=== PATIENT | male | born 1935 | race Asian ===

== ENCOUNTER 2019-08-31 11:15 | Emergency (ER) | payer OTHER ==
[~2019-08-31] VITALS: Ht 177.8 cm; Wt 72.6 kg
[~2019-08-31 11:15] MED LIST: ATOR40TA68 PO; BENA20TA9 PO; BISA-79 PO; CARB-61 PO; CARV12.548 PO; ELMIRON; FURO20TA4 PO; LINA5TAB2 PO; LORA10TA7 PO; METF-379 PO; OMEP20CA11 PO
[2019-08-31 11:24] VITALS: BP_SYST 134
--- NOTE | 2019-08-31 11:30 | NUR ---
Patient triaged and placed in waiting room. VSS and patient appears in no acute distress at this time. Accompanied by son, awaiting available bed, and MD notified of need for MSE.
--- NOTE | 2019-08-31 12:00 | NUR ---
pt arrives from home w/ c/o left shoulder pain. S/p fall. No other c/o at the moment.
--- NOTE | 2019-08-31 12:05 | NUR ---
SURESH Paul at bedside examining patient.
--- NOTE | 2019-08-31 12:10 | NUR ---
pt getting x-rays at the bedside
[2019-08-31] MEDS ORDERED: KETOROLAC TROMETHAMINE 30 MG VIAL IM ONE (12:30)
--- NOTE | 2019-08-31 12:45 | NUR ---
medicted the pt w/ Toradol IM
[2019-08-31 13:05] VITALS: BP_SYST 134
--- NOTE | 2019-08-31 13:06 | NUR ---
Patient given written and verbal discharge instructions and verbalizes understanding. ER MD discussed with patient the results and treatment provided. Patient in stable condition. ID arm band removed. Rx of Naproxen given. Patient educated on pain management and to follow up with PMD. Pain Scale 3/10. Opportunity for questions provided and answered. Medication side effect fact sheet provided.
== END 2019-08-31 13:06 | disposition home or self-care (01) ==
LOC: SED 11:15
DX: S42.032A Displaced fracture of lateral end of left clavicle, initial encounter for closed fracture (principal); E11.9 Type 2 diabetes mellitus without complications; I25.2 Old myocardial infarction; Z79.899 Other long term (current) drug therapy; W01.0XXA Fall on same level from slipping, tripping and stumbling without subsequent striking against object, initial encounter; Y93.89 Activity, other specified; Y92.89 Other specified places as the place of occurrence of the external cause; Y99.8 Other external cause status
CPT/HCPCS: 29105; 73000; 73030; 96372; 99284; J1885

== ENCOUNTER 2022-02-22 18:19 | Inpatient (IN) | payer OTHER ==
[~2022-02-22] VITALS: Ht 175.3 cm; Wt 76.8 kg
[~2022-02-22 18:19] MED LIST changes: +BENA-6 PO; -BENA20TA9 PO; -OMEP20CA11 PO; +OMEP20CA15 PO
[2022-02-22 18:27] VITALS: BP_SYST 123
--- NOTE | 2022-02-22 18:37 | NUR ---
PT BIBA AWAKE AND ALERT AOX3, WITH SOB . PT FAMILY CALLED 911. PT WAS TACPENIC AT 32 W/ LABORED BREATHING AND CRACKLES, AND O2 WAS 85% ON RA. PT HAS HX OF CHF AND HTN, DM2.
--- NOTE | 2022-02-22 18:40 | NUR ---
MD DR NAJERA AT BEDSIDE
[2022-02-22 19:03] LABS: BASOPHILS # (AUTO) 0.1 K/uL (0.0-0.2); BASOPHILS % (AUTO) 0.6 % (0.0-2.0); EOSINOPHILS # (AUTO) 0.8 K/uL (0.0-0.4); EOSINOPHILS % (AUTO) 3.5 % (0.0-4.0); HEMATOCRIT 28.6 % (36-54); HEMOGLOBIN 9.1 g/dL (14.0-18.0); LYMPHOCYTES # (AUTO) 5.2 K/uL (1.0-5.5); LYMPHOCYTES % (AUTO) 24.3 % (20.5-51.5); MEAN CORPUSCULAR HEMOGLOBIN 29 pg (27-31); MEAN CORPUSCULAR HGB CONC 32 % (32-36); MEAN CORPUSCULAR VOLUME 91 fL (79.0-98.0); MONOCYTES # (AUTO) 1.1 K/uL (0.0-1.0); MONOCYTES % (AUTO) 5.3 % (1.7-9.3); NEUTROPHILS # (AUTO) 14.2 K/uL (1.8-7.7); NEUTROPHILS % (AUTO) 66.3 % (40.0-70.0); PLATELET COUNT (AUTO) 481 K/uL (130-430); RED BLOOD CELL COUNT(AUTO) 3.16 MIL/uL (4.2-6.2); RED CELL DISTRIBUTION WIDTH 18.5 % (9.0-15.0); WHITE BLOOD COUNT (AUTO) 21.4 K/uL (4.8-10.8)
--- NOTE | 2022-02-22 19:24 | NUR ---
REPORT GIVEN TO JAMAR VALENTINO. PT IN STABLE CONDITION. VSS
[2022-02-22 19:25] LABS: ANION GAP 12 (5-15); CHLORIDE 106 mmol/L (98-107); CREATININE 1.54 mg/dL (0.55-1.30); GLUCOSE 226 mg/dL (70-99); UREA NITROGEN, BLOOD 25 mg/dL (8-21)
[2022-02-22] MEDS ORDERED: PIPERACILLIN/TAZO 3.375 GM in NS 50 ML IV ONE (19:30)
[2022-02-22 19:34] LABS: ALANINE AMINOTRANSFERASE 19 U/L (12-78); ALBUMIN 2.8 g/dL (3.4-4.8); ASPARTATE AMINOTRANSFERASE 23 U/L (10-37); TOTAL BILIRUBIN 0.7 mg/dL (0.0-1.0)
[2022-02-22] MEDS ORDERED: PIPERACILLIN/TAZOBACTAM 3.375 GM/VIAL (ZOSYN) IV ONE (19:52)
[2022-02-22 20:00] LABS: INR 0.9 (0.80-1.20); PROTHROMBIN TIME 9.8 SECS (9.5-12.5)
[2022-02-22 20:21] LABS: BILIRUBIN,URINE NEGATIVE (NEGATIVE); BLOOD, URINE 1+ (NEGATIVE); CLARITY/URINE SL CLOUDY (CLEAR); COLOR,URINE YELLOW (YELLOW); GLUCOSE,URINE NEGATIVE (NEGATIVE); KETONES,URINE TRACE (NEGATIVE); LEUKOCYTE ESTERASE ,URINE 1+ (NEGATIVE); NITRITE, URINE NEGATIVE (NEGATIVE); PROTEIN URINE 1+ (NEGATIVE); UROBILINOGEN,URINE 0.2 (0.2-1.0)
[2022-02-22 20:39] LABS: BACTERIA,URINE MODERATE /HPF (None Seen); MUCUS,URINE None Seen /LPF (None Seen); RBC,URINE 0-3 /HPF (0-3); WBC,URINE 20-50 /HPF (0-3)
[2022-02-22] MEDS ORDERED: FUROSEMIDE 20 MG/2 ML VIAL IVP ONE (20:45)
--- NOTE | 2022-02-22 21:00 | NUR ---
# 20 gauge angiocath placed to L FA. Use of asceptic technique. Opsite placed over site. Blood return noted. Flushed with 10 cc of normal saline. No evidence of infiltration noted. Patient tolerated well.
--- NOTE | 2022-02-22 21:50 | NUR ---
Admit bed requested Patient will be admitted to care of . Admitted to ICU unit. Diagnosis :SEPSIS Inpatient (Yes or No) Y Observation (Yes or No) N Orientation concerns or request close to nursing station (Yes or No) N Covid Status : NEG From Home (Yes or if No enter name of facility) Y Addendum: 02/23/22 at 0723 by [email or web address] PT TO TELE PER DR. LY AT [id number]
[2022-02-22] MEDS ORDERED: DOCUSATE SODIUM 100 MG CAPSULE PO PRN (22:15)
[2022-02-22] MEDS ORDERED: ACETAMINOPHEN 325 MG TABLET PO PRN (22:15)
[2022-02-22] MEDS ORDERED: ONDANSETRON HCL 4 MG/2 ML VIAL IVP PRN (22:15)
[2022-02-22] MEDS ORDERED: ZOLPIDEM TARTRATE 5 MG TABLET PO PRN (22:15)
[2022-02-22] MEDS ORDERED: MORPHINE 2 MG/ML INJ. SYRINGE IVP PRN ×2 (22:15)
[2022-02-22] MEDS ORDERED: MAGNESIUM SULFATE 50 ML IV PRN (22:15)
[2022-02-22] MEDS ORDERED: LORazepam 2 MG/ML VIAL IVP PRN (22:15)
[2022-02-22] MEDS ORDERED: DEXTROSE 50% JECT 50 ML DISP.SYRIN IVP PRN (22:15)
[2022-02-22] MEDS ORDERED: MUPIROCIN 2% TOPICAL OINTMENT 22 GM NS PRN (22:15)
[2022-02-22] MEDS: NACL 0.9% 1,000 ML IV SCH (22:15)
[2022-02-22] MEDS ORDERED: VANCOMYCIN HCL 1 GM/NS PREMIX 250 ML IV SCH (23:15)
[2022-02-23] MEDS ORDERED: PIPERACILLIN/TAZO 3.375/DEX-IS 50 ML IV SCH
[2022-02-23] MEDS ORDERED: PIPERACILLIN/TAZOBACTAM 3.375 GM/VIAL (ZOSYN) IV ONE (00:06)
[2022-02-23] MEDS ORDERED: VANCOMYCIN HCL 1000 MG/VIAL IV ONE (00:07)
[2022-02-23 01:42] VITALS: BP_SYST 99
[2022-02-23 06:22] LABS: BASOPHILS # (AUTO) 0.1 K/uL (0.0-0.2); BASOPHILS % (AUTO) 0.5 % (0.0-2.0); EOSINOPHILS # (AUTO) 0.2 K/uL (0.0-0.4); EOSINOPHILS % (AUTO) 1.4 % (0.0-4.0); HEMATOCRIT 23.9 % (36-54); HEMOGLOBIN 7.9 g/dL (14.0-18.0); LYMPHOCYTES # (AUTO) 2.2 K/uL (1.0-5.5); LYMPHOCYTES % (AUTO) 14.7 % (20.5-51.5); MEAN CORPUSCULAR HEMOGLOBIN 29 pg (27-31); MEAN CORPUSCULAR HGB CONC 33 % (32-36); MEAN CORPUSCULAR VOLUME 88 fL (79.0-98.0); MONOCYTES # (AUTO) 0.9 K/uL (0.0-1.0); MONOCYTES % (AUTO) 5.9 % (1.7-9.3); NEUTROPHILS # (AUTO) 11.5 K/uL (1.8-7.7); NEUTROPHILS % (AUTO) 77.5 % (40.0-70.0); PLATELET COUNT (AUTO) 388 K/uL (130-430); RED BLOOD CELL COUNT(AUTO) 2.71 MIL/uL (4.2-6.2); RED CELL DISTRIBUTION WIDTH 18.1 % (9.0-15.0); WHITE BLOOD COUNT (AUTO) 14.9 K/uL (4.8-10.8)
[2022-02-23 06:30] LABS: ANION GAP 12 (5-15); CALCIUM 8.4 mg/dL (8.4-11.0); CHLORIDE 109 mmol/L (98-107); CREATININE 1.26 mg/dL (0.55-1.30); GLUCOSE 121 mg/dL (70-99); UREA NITROGEN, BLOOD 23 mg/dL (8-21)
--- NOTE | 2022-02-23 07:00 | NUR ---
RECEIVED PT IN BED #8 FROM NOC RN, PT IS STABLE, NAD, VSS, AAOx3, AWAITING DISPOSITION TO THE FLOOR. AWAITING ADMITTING MD LY FOR ASSESSMENT.
--- NOTE | 2022-02-23 07:15 | NUR ---
MD LY AT BEDSIDE DISCUSSING DNR STATUS AND ADMISSION ASSESSMENT.
[2022-02-23] MEDS: NACL 0.9% 1,000 ML IV SCH (07:52)
[2022-02-23] MEDS: PIPERACILLIN/TAZO 3.375/DEX-IS 50 ML IV SCH ×4 (08:02→23:01)
[2022-02-23] MEDS: ATORVASTATIN 20 MG TABLET PO SCH (08:33)
[2022-02-23] MEDS: HEPARIN SODIUM,PORCINE 5,000 UNITS/ML VIAL SUBCUT SCH ×2 (08:34→23:04)
[2022-02-23] MEDS ORDERED: CARBIDOPA/LEVODOPA 25/100 MG TABLET PO SCH ×2 (09:00→10:58)
[2022-02-23] MEDS ORDERED: ACET-2634 PO (10:56)
[2022-02-23] MEDS ORDERED: ASPI-862 PO (10:56)
[2022-02-23] MEDS ORDERED: CHOL200075 PO (10:56)
--- NOTE | 2022-02-23 16:46 | NUR ---
Patient will be admitted to care of . Admitted to TELE unit. Will go to room 135TA. Belongings list completed. Complete and up to date summary report printed. SBAR report to be given at bedside with opportunity for questions.
--- NOTE | 2022-02-23 16:54 | NUR ---
CONSULTATION PAGED/CALLED Reason for Consultation: [] PNA Person Who was Notified: [] ELAINE Consulting Physician: [] DR BLAS Evaporator Operator Specialty: [] PULWALT Ordering Physician: [] DR LY
--- NOTE | 2022-02-23 16:57 | NUR ---
CONSULTATION PAGED/CALLED Reason for Consultation: [] CHF Person Who was Notified: [] DR HICKS Y Consulting Physician: [] DR Galdino HICKS Hospice Office Coordinator Specialty: [] CARDIO Ordering Physician: [] DR LY
--- NOTE | 2022-02-23 16:59 | NUR ---
CONSULTATION PAGED/CALLED Reason for Consultation: [] SEPSIS Person Who was Notified: [] GALEN Consulting Physician: [] DR VALERIE CHAUDHARI FOR DR DAI Refueler Specialty: [] ID Ordering Physician: [] DR LY
--- NOTE | 2022-02-23 17:03 | NUR ---
CONSULTATION PAGED/CALLED Reason for Consultation: [] RENAL INSUFFICIENCY Person Who was Notified: [] GALEN Consulting Physician: [] DR TIFFANY DAVIS Vocational Ed Instructor Specialty: [] NEPHRO Ordering Physician: [] DR LY
--- NOTE | 2022-02-23 17:10 | NUR ---
ADMISSION NOTES RECEIVED PT FROM [facility] C/O CHELSY [facility]AUGHLIN, PT IS DIAGNOSED WITH SEPSIS UNDER DR LY. BP LOW AT 90/58. NO FEVER. PT'S AT BEDSIDE. PT SPEAKS URDU AND SPANISH. EDUCATED PT'S ON THE USE OF CALL LIGHT, TV AND BED CONTROLS. ENCOURAGED TO CALL FOR ASSIST AND ANY OTHER CONCERNS.
[2022-02-23 18:00] VITALS: BP_SYST 87
[2022-02-23] MEDS ORDERED: POTASSIUM CHLORIDE 40 MEQ in NS 250 ML IV ONE (18:00)
--- NOTE | 2022-02-23 18:19 | NUR ---
BOLUS 1 LI OF NS STARTED ORDERED. Addendum: 02/23/22 at 1820 by Alonso Carnes RN LAST BP WAS 86/55
[2022-02-23] MEDS ORDERED: NACL 0.9% 1,000 ML IV ONE (18:30)
[2022-02-23] MEDS: KCL 20 mEq in 100 mL (PREMIX) 100 ML IV SCH ×2 (18:38→22:45)
[2022-02-23 19:00] VITALS: BP_SYST 125; BP_SYST 141
--- NOTE | 2022-02-23 19:29 | NUR ---
ENDORSED TO [facility] NURSE RE ADMISSION: DUE TO PT'S STATUS, THIS RN WAS NOT ABLE TO ADMIT PT THIS RN HAS TO CALL MD AND CARRY OUT ORDERS.
[2022-02-23 19:32] VITALS: BP_SYST 91
[2022-02-23 20:00] VITALS: BP_SYST 125
[2022-02-23] MEDS ORDERED: FLU VACC QS2022-23(6MOS UP)/PF 0.5 ML/SYR SYRINGE I.M. ONE (22:15)
[2022-02-23] MEDS: CARBIDOPA/LEVODOPA 25/100 MG TABLET PO SCH (22:50)
[2022-02-23] MEDS: VANCOMYCIN HCL 1,000 MG in NS 250 ML IV SCH (22:58)
[2022-02-24] VITALS (7 sets, daily range): BP systolic 101–148
[2022-02-24] MEDS: NACL 0.9% 1,000 ML IV SCH (05:22)
[2022-02-24] MEDS: PIPERACILLIN/TAZO 3.375/DEX-IS 50 ML IV SCH ×3 (05:23→17:09)
--- NOTE | 2022-02-24 08:00 | NUR ---
Initial Notes Patient is AOx3. Resting and awake. No ss of distress noted. Breathing is even and nonlabored, on 2 L O2 via NC. No SOB noted. Patient denies pain. IV patent. Vital signs obtained, as documented. Patient is high Fowlers, breakfast at bedside table. Bed is locked, alarm on, and at lowest position. Call light within reach.
--- NOTE | 2022-02-24 10:00 | NUR ---
Notes Patient has been cleaned and repositioned. Wound care done. Patient tolerated well. denies pain. No ss of distress noted. Patient is comfortable and resting. IVF running. Family at bedside. Safety precautions in place and call light within reach.
[2022-02-24] MEDS: CARBIDOPA/LEVODOPA 25/100 MG TABLET PO SCH ×2 (10:10→21:54)
[2022-02-24] MEDS: ATORVASTATIN 20 MG TABLET PO SCH (10:10)
[2022-02-24] MEDS: HEPARIN SODIUM,PORCINE 5,000 UNITS/ML VIAL SUBCUT SCH ×2 (10:13→22:09)
[2022-02-24] MEDS ORDERED: ACETYLCYSTEINE 20% 6000 MG/30 ML VIAL (ORAL) PO SCH (10:30)
[2022-02-24] MEDS ORDERED: ACETYLCYSTEINE 20% 6000 MG/30 ML VIAL (ORAL) PO ONE (10:30)
--- NOTE | 2022-02-24 11:01 | NUR ---
Dietitian Recommendations * Continue Consistent CHO diet * Rec Glucerna BID * Consider wound supplements: MVI, 250 mg VIT C, Cortez BID * Consider 220mg ZnSO4 x 14 days for wound healing GS, MPH, RD Please refer to RD Assessment for further details Addendum: 02/24/22 at [address] Amended: Links added.
--- NOTE | 2022-02-24 12:00 | NUR ---
Notes No ss of distress noted. Patient is eating lunch. Patient stable. Safety precautions in place and call light within reach.
[2022-02-24] MEDS: INSULIN LISPRO SLIDING SCALE 100 UNITS/ML, 3 ML VIAL (humaLOG) SUBCUT PRN ×2 (12:12→17:35)
[2022-02-24 14:50] LABS: ANION GAP 10 (5-15); CALCIUM 8.1 mg/dL (8.4-11.0); CHLORIDE 108 mmol/L (98-107); GLUCOSE 139 mg/dL (70-99)
[2022-02-24 14:51] LABS: CREATININE 1.34 mg/dL (0.55-1.30); UREA NITROGEN, BLOOD 22 mg/dL (8-21)
[2022-02-24 15:11] LABS: ALANINE AMINOTRANSFERASE 10 U/L (12-78); ALBUMIN 2.3 g/dL (3.4-4.8); ASPARTATE AMINOTRANSFERASE 40 U/L (10-37); TOTAL BILIRUBIN 0.6 mg/dL (0.0-1.0)
[2022-02-24] MEDS: IPRATROPIUM/ALBUTEROL SULFATE 3 ML AMPUL.NEB (DUONEB) INH PRN ×2 (15:43→22:19)
[2022-02-24] MEDS: ACETYLCYSTEINE 20% 4 ML VIAL (RT) INH PRN ×2 (15:45→22:26)
--- NOTE | 2022-02-24 16:05 | NUR ---
MD Called and spoke to Dr. Galdino Cisse. made aware of critical troponin lab value of 245. New orders received.
--- NOTE | 2022-02-24 16:12 | NUR ---
Notes Patient is resting, eyes closed, appears to be sleeping. No facial grimace noted. at bedside. Bed locked, alarm on, and at lowest position. Call light within reach.
[2022-02-24 16:45] LABS: BASOPHILS # (AUTO) 0.1 K/uL (0.0-0.2); BASOPHILS % (AUTO) 0.6 % (0.0-2.0); EOSINOPHILS # (AUTO) 0.6 K/uL (0.0-0.4); EOSINOPHILS % (AUTO) 5.3 % (0.0-4.0); LYMPHOCYTES # (AUTO) 1.9 K/uL (1.0-5.5); LYMPHOCYTES % (AUTO) 18.4 % (20.5-51.5); MEAN CORPUSCULAR HEMOGLOBIN 29 pg (27-31); MEAN CORPUSCULAR HGB CONC 34 % (32-36); MEAN CORPUSCULAR VOLUME 88 fL (79.0-98.0); MONOCYTES # (AUTO) 0.6 K/uL (0.0-1.0); MONOCYTES % (AUTO) 5.8 % (1.7-9.3); NEUTROPHILS # (AUTO) 7.4 K/uL (1.8-7.7); NEUTROPHILS % (AUTO) 69.9 % (40.0-70.0); PLATELET COUNT (AUTO) 393 K/uL (130-430); RED BLOOD CELL COUNT(AUTO) 2.74 MIL/uL (4.2-6.2); RED CELL DISTRIBUTION WIDTH 18.2 % (9.0-15.0); WHITE BLOOD COUNT (AUTO) 10.6 K/uL (4.8-10.8)
[2022-02-24] MEDS: POTASSIUM CHLORIDE 20 MEQ TAB.PRT.SR PO PRN (17:32)
--- NOTE | 2022-02-24 18:59 | NUR ---
Closing Notes Patient is awake and eating dinner. Family at bedside. Denies pain. No SOB noted. Breathing is even and nonlabored, on 2 L O2 via NC. IVF running. IV patent. No ss of distress noted. Patient is stable. All needs met. Bed is locked, alarm on, and at lowest position. Call light within reach.
[2022-02-24] MEDS: VANCOMYCIN HCL 1,000 MG in NS 250 ML IV SCH (22:05)
[2022-02-25] MEDS: NACL 0.9% 1,000 ML IV SCH (00:40)
[2022-02-25] MEDS: PIPERACILLIN/TAZO 3.375/DEX-IS 50 ML IV SCH ×4 (01:18→17:09)
[2022-02-25 02:06] VITALS: BP_SYST 142
--- NOTE | 2022-02-25 04:00 | NUR ---
pt.assessed.v/s assessed values wnl.o2-sat%=96%.iv access intact.pt.assessed for cleanless.lne.ie pteioned.no cpopainainaszuea.pt.rst dnr stsus.reriew family.pt.has janae capone wifhto be elham puente md.i am.pt.assesefoc c/ne.is pt tioend.calight/telephp apce winaces of thpt.
[2022-02-25 07:00] LABS: BASOPHILS # (AUTO) 0.1 K/uL (0.0-0.2); BASOPHILS % (AUTO) 0.5 % (0.0-2.0); EOSINOPHILS # (AUTO) 0.1 K/uL (0.0-0.4); EOSINOPHILS % (AUTO) 0.5 % (0.0-4.0); HEMATOCRIT 23.8 % (36-54); HEMOGLOBIN 7.7 g/dL (14.0-18.0); LYMPHOCYTES # (AUTO) 1.2 K/uL (1.0-5.5); LYMPHOCYTES % (AUTO) 9.1 % (20.5-51.5); MEAN CORPUSCULAR HEMOGLOBIN 29 pg (27-31); MEAN CORPUSCULAR HGB CONC 33 % (32-36); MEAN CORPUSCULAR VOLUME 89 fL (79.0-98.0); MONOCYTES # (AUTO) 0.6 K/uL (0.0-1.0); MONOCYTES % (AUTO) 4.5 % (1.7-9.3); NEUTROPHILS # (AUTO) 10.9 K/uL (1.8-7.7); NEUTROPHILS % (AUTO) 85.4 % (40.0-70.0); PLATELET COUNT (AUTO) 378 K/uL (130-430); RED BLOOD CELL COUNT(AUTO) 2.68 MIL/uL (4.2-6.2); WHITE BLOOD COUNT (AUTO) 12.8 K/uL (4.8-10.8)
--- NOTE | 2022-02-25 07:20 | NUR ---
opening note received sbar from night RN. Patient in bed, respirations even,non labored, bed in low and locked position, call light within reach, bed alarm on
[2022-02-25 07:25] LABS: ANION GAP 11 (5-15); CALCIUM 8.1 mg/dL (8.4-11.0); CHLORIDE 112 mmol/L (98-107); CREATININE 1.43 mg/dL (0.55-1.30); GLUCOSE 138 mg/dL (70-99); UREA NITROGEN, BLOOD 22 mg/dL (8-21)
[2022-02-25 08:00] VITALS: BP_SYST 88
[2022-02-25] MEDS: ATORVASTATIN 20 MG TABLET PO SCH (08:39)
[2022-02-25] MEDS: CARBIDOPA/LEVODOPA 25/100 MG TABLET PO SCH ×2 (08:39→21:11)
[2022-02-25] MEDS: HEPARIN SODIUM,PORCINE 5,000 UNITS/ML VIAL SUBCUT SCH ×2 (08:41→21:10)
--- NOTE | 2022-02-25 11:44 | NUR ---
DNR LEFT MESSAGE FOR DR LY THAT DNR PAPERWORK IS IN THE CHART AND NEEDS TO BE SIGNED TO BE IN EFFECT.
[2022-02-25 12:00] VITALS: BP_SYST 130
--- NOTE | 2022-02-25 12:20 | NUR ---
critical paged dr pratibha calhoun regarding critical troponin 228
--- NOTE | 2022-02-25 12:34 | NUR ---
critical informed dr Cisse of Critical Troponin no new orders
[2022-02-25] MEDS: ACETYLCYSTEINE 20% 4 ML VIAL (RT) INH PRN (15:15)
[2022-02-25] MEDS: IPRATROPIUM/ALBUTEROL SULFATE 3 ML AMPUL.NEB (DUONEB) INH PRN (15:15)
--- NOTE | 2022-02-25 15:57 | NUR ---
INFORMED DR BLAS THAT PATIENT IS COMPLAINING OF PHLEGM, HIGH COARSE RALES TO SEE PATIENT
[2022-02-25 16:00] VITALS: BP_SYST 129
--- NOTE | 2022-02-25 16:07 | NUR ---
MD DR BLAS BEDSIDE EXAMINING PATIENT NEW ORDERS RECEIVED
[2022-02-25] MEDS ORDERED: FUROSEMIDE 40 MG/4 ML VIAL IVP ONE (16:30)
--- NOTE | 2022-02-25 16:33 | NUR ---
BM LARGE BM, PROVIDED MELVIN CARE, CHANGED LINENS, REPOSITIONED PATIENT
[2022-02-25] MEDS: INSULIN LISPRO SLIDING SCALE 100 UNITS/ML, 3 ML VIAL (humaLOG) SUBCUT PRN (17:11)
[2022-02-25 19:00] VITALS: BP_SYST 147
--- NOTE | 2022-02-25 19:15 | NUR ---
change of shift.pt.presents quiescent affect;calm,resting.no c/o pain.nausea.diet status ordered npo;diet status reviewed w family. pt.assessed for cleanliness.pt.cleaned.pt.repositioned.pt.presents iv access location lt. forearm.iv access pt.presents respiratory status unlabored@room air.o2-sat%=96%.call light/telephone w/in access of the pt.
--- NOTE | 2022-02-25 19:20 | NUR ---
CLOSING NOTE PROVIDED SBAR TO NIGHT RN. PATIENT IN BED, RESPIRATIONS SHALLOW AND LABORED, 2L 02 NASAL CANULA. IV IS SALINE LOCKED. BED IS IN LOW AND LOCKED POSITION, CALL LIGHT WITHIN REACH, BED ALARM ON.. ENDORSED CARE TO NIGHT RN
[2022-02-25 20:00] VITALS: BP_SYST 147
--- NOTE | 2022-02-25 20:00 | NUR ---
pt.assessed.v/s assessed values wnl.o2-sat%=96%.pt.presents dnr code status @this hour.pt.retracts the dnr code status. pt.whises full code status.to f/u w in am.no c/o pain,nausea.iv access intact.pt.assessed for cleanliness.pt.repositioned. diet status ordered npo;diet status reviewed w family.call light/telephone placed w/in access of the pt.
--- NOTE | 2022-02-25 20:30 | NUR ---
blood glucose assessed value;141mg/dl.
--- NOTE | 2022-02-25 21:00 | NUR ---
2100p medication administered.pt.capable to ingest the po medication w/out difficulty.no c/o pain,nausea. call light telephone placed w/in access of the pt.
--- NOTE | 2022-02-25 22:00 | NUR ---
pt.assessed.pt.quiescent;calm. paged.returned page. apprised that pt.presented adverse reaction to inh duo-neb if an alternative inh medication could be ordered. ordered xopenox:1.25mg tid and q4hrs/prn;sob,wheezes.family apprised of the new inh medication order.pt.presents no c/o pain,nausea.pt.assessed for cleanliness.pt.repositioned.call light/ telephone placed w/in access of the pt.
[2022-02-25] MEDS: LevALBUTEROL HCL 1.25 MG/0.5 ML *CONC.* VIAL.NEB (XOPENEX CONC.) INH SCH (23:48)
--- NOTE | 2022-02-26 | NUR ---
pt.assessed.v/s assessed values wnl.o2-sat%=96%.no c.o pain,nausea.pt.assessed for cleanliness.pt.repositioned. call light/telephone placed w/in access of the pt.
[2022-02-26] MEDS: PIPERACILLIN/TAZO 3.375/DEX-IS 50 ML IV SCH ×5 (00:27→23:40)
--- NOTE | 2022-02-26 02:00 | NUR ---
pt.assessed.pt.quiescent.o2-sat%=96%.per flacc pain mgx pt.absent facial grimaces/body posturing.call light/telephone placed w/in access of the pt.
[2022-02-26 02:40] VITALS: BP_SYST 77
--- NOTE | 2022-02-26 04:00 | NUR ---
pt.assessed.pt.quiescent.o2-sat%=96%.per flacc pain mgx pt.absent facial grimaces/body posturing.pt.assessed for cleanliness. pt.repositioned.call light/telephone placed w/in access of the pt
--- NOTE | 2022-02-26 06:40 | NUR ---
pt.assessed.no c/o pain,nausea.zosyn abx 0600a dose administered.blood glucose assessed value:120mg /dl. pt.repositioned.call light/telephone placed w/in access of the pt.
[2022-02-26] MEDS: LevALBUTEROL HCL 1.25 MG/0.5 ML *CONC.* VIAL.NEB (XOPENEX CONC.) INH SCH ×3 (07:43→23:15)
[2022-02-26] MEDS: CARBIDOPA/LEVODOPA 25/100 MG TABLET PO SCH ×2 (08:38→21:38)
[2022-02-26] MEDS: ATORVASTATIN 20 MG TABLET PO SCH (08:38)
[2022-02-26] MEDS: HEPARIN SODIUM,PORCINE 5,000 UNITS/ML VIAL SUBCUT SCH ×2 (08:40→21:42)
[2022-02-26 08:49] LABS: BASOPHILS # (AUTO) 0.1 K/uL (0.0-0.2); BASOPHILS % (AUTO) 0.6 % (0.0-2.0); EOSINOPHILS # (AUTO) 0.5 K/uL (0.0-0.4); EOSINOPHILS % (AUTO) 3.9 % (0.0-4.0); HEMATOCRIT 25.9 % (36-54); HEMOGLOBIN 8.4 g/dL (14.0-18.0); LYMPHOCYTES % (AUTO) 15.9 % (20.5-51.5); MEAN CORPUSCULAR HEMOGLOBIN 29 pg (27-31); MEAN CORPUSCULAR HGB CONC 32 % (32-36); MEAN CORPUSCULAR VOLUME 89 fL (79.0-98.0); MONOCYTES # (AUTO) 0.8 K/uL (0.0-1.0); MONOCYTES % (AUTO) 6.4 % (1.7-9.3); NEUTROPHILS # (AUTO) 9.3 K/uL (1.8-7.7); NEUTROPHILS % (AUTO) 73.2 % (40.0-70.0); PLATELET COUNT (AUTO) 397 K/uL (130-430); RED BLOOD CELL COUNT(AUTO) 2.91 MIL/uL (4.2-6.2); RED CELL DISTRIBUTION WIDTH 18.2 % (9.0-15.0); WHITE BLOOD COUNT (AUTO) 12.7 K/uL (4.8-10.8)
[2022-02-26 09:02] LABS: ANION GAP 12 (5-15); CALCIUM 8.5 mg/dL (8.4-11.0); CHLORIDE 109 mmol/L (98-107); CREATININE 1.45 mg/dL (0.55-1.30); GLUCOSE 121 mg/dL (70-99); UREA NITROGEN, BLOOD 22 mg/dL (8-21)
[2022-02-26 09:25] VITALS: BP_SYST 147
[2022-02-26 12:25] VITALS: BP_SYST 85
--- NOTE | 2022-02-26 16:43 | NUR ---
TROPONIN 101 TRENDING DOWN PAGED
[2022-02-26 17:47] VITALS: BP_SYST 99
--- NOTE | 2022-02-26 18:08 | NUR ---
DR LY AWARE OF TROPONIN TRENDING DOWN AND PT IS ASYMPTOMATIC NO DISTRESS NOTED
--- NOTE | 2022-02-26 19:25 | NUR ---
CALLED MD GABRIELLA CANCINO MESSAGE FOR A DIET ORDER PT NOT ASPIRATION RISK CARE ENDORSED TO PAULO TO FOLLOW UP
--- NOTE | 2022-02-26 19:34 | NUR ---
ENDORSED PATIENT TO [facility]NELL VALENTINO, INFORMED DR QUIROZ CALLED TO GET AN ORDER FOR SPEECH THERAPY AND DIET ORDER, DR QUIROZ STATES TO CONTACT DR BLAS IN THE AM TO CLARIFY THESE ORDERS REGARDING DIET AND SPEECH THERAPY, KEEP PATIENT NPO, CORNELL VALENTINO INFORMED
[2022-02-26 20:00] VITALS: BP_SYST 102
--- NOTE | 2022-02-26 20:00 | NUR ---
INITIAL NOTES: PT IS AWAKE , NOT IN ANY ACUTE DISTRESS ; VITALS ARE STABLE ; ON ROOM AIR , FAMILY AT BEDSIDE ; ASSESSMENT COMPLETED ; NOTICED DRESSING TO THE SACRUM AND RIGHT HEEL , WILL OPEN IT LATER AND CHECK , PT TURNED AND REPOSITIONED ; BED IN LOW AND LOCK POSITION , WILL CONTINUE TO MONITOR PT . PT IS STILL NPO . WILL MONITOR
[2022-02-26] MEDS: POTASSIUM CHLORIDE 20 MEQ TAB.PRT.SR PO PRN (21:38)
--- NOTE | 2022-02-26 21:40 | NUR ---
MEDICATION : DUE MEDS GIVEN WITH SIPS OF WATER , PT IS ABLE TO SWALLOW WELL ; NOTICED PTS K IS LOW PER ORDER K DUR GIVEN ; NO S/S OF ANY ASPIRATION NOTICED . WILL CONTINUE TO MONITOR PT . PTS FAMILY IS STILL AT BEDSIDE.
--- NOTE | 2022-02-27 00:05 | NUR ---
NEW IV: PT IS COMFORTABLE , NOTICED IV ON THE R AC ,PT IS KEEPING HIS ARM FLEXED AND ITS CONTINUOUSLY BEEPING , DCD IV CATH ,TIP IS INTACT , DRESSING APPLIED , NEW IV STARTED TO THE LEFT FA 22G, X1 ATTEMPT , GOOD BLOOD RETURN NOTICED , IV FLUID RECONNECTED TO IT .VITALS ARE STABLE . WILL CONTINUE TO MONITOR PT . Addendum: 02/28/22 at 0344 by Yaakov Ayon RN CORRECTION ;WRONG DATE
--- NOTE | 2022-02-27 01:00 | NUR ---
RN NOTES: PT IS SLEEPING ,NOT IN ANY ACUTE DISTRESS; VITALS ARE STABLE ; WILL CONTINUE TO MONITOR PT .
[2022-02-27 01:05] VITALS: BP_SYST 103
--- NOTE | 2022-02-27 03:40 | NUR ---
RN ROUNDS; PT REMOVED HIS GOWN AND TELEMONITOR ; REORIENTED PT . WILL MONITOR PT .
--- NOTE | 2022-02-27 05:40 | NUR ---
RN NOTES: PT IS INCONTINENT WITH URINE ; PT CLEANED ; DRESSING ON THE SACRUM CHANGED , PLEASE CHECK ASSESSMENT ARE FOR MORE INFORMATION .PT TURNED AND REPOSITIONED ; WHILE CLEANING PT , PT C/O SOB . PLACED PT ON O2 FOR FEW MIN ; PT WAS SAT 98% ; PLACED PT BACK ON ROOM AIR AFTER FEW MIN ; PT IS SAT 95% .
[2022-02-27 05:59] VITALS: BP_SYST 107
[2022-02-27 06:07] LABS: BASOPHILS # (AUTO) 0.1 K/uL (0.0-0.2); BASOPHILS % (AUTO) 0.5 % (0.0-2.0); EOSINOPHILS # (AUTO) 0.1 K/uL (0.0-0.4); EOSINOPHILS % (AUTO) 0.9 % (0.0-4.0); HEMATOCRIT 26.3 % (36-54); HEMOGLOBIN 8.6 g/dL (14.0-18.0); LYMPHOCYTES % (AUTO) 6.6 % (20.5-51.5); MEAN CORPUSCULAR HEMOGLOBIN 29 pg (27-31); MEAN CORPUSCULAR HGB CONC 33 % (32-36); MEAN CORPUSCULAR VOLUME 89 fL (79.0-98.0); MONOCYTES # (AUTO) 0.9 K/uL (0.0-1.0); MONOCYTES % (AUTO) 5.6 % (1.7-9.3); NEUTROPHILS # (AUTO) 13.1 K/uL (1.8-7.7); NEUTROPHILS % (AUTO) 86.4 % (40.0-70.0); PLATELET COUNT (AUTO) 433 K/uL (130-430); RED BLOOD CELL COUNT(AUTO) 2.97 MIL/uL (4.2-6.2); RED CELL DISTRIBUTION WIDTH 17.8 % (9.0-15.0); WHITE BLOOD COUNT (AUTO) 15.1 K/uL (4.8-10.8)
[2022-02-27] MEDS: PIPERACILLIN/TAZO 3.375/DEX-IS 50 ML IV SCH ×4 (06:14→23:57)
--- NOTE | 2022-02-27 06:58 | NUR ---
CLOSING NOTES: PT IS COMFORTABLE ; NOT IN ANY ACUTE DISTRESS; WILL CONTINUE TO MONITOR PT . PT ON ROOM AIR ;BED IN LOW AND LOCK POSITION ; ALL NEEDS ATTENDED ; WILL CONTINUE TO MONITOR AND WILL ENDORSE TO NEXT SHIFT NURSE .
[2022-02-27 07:17] LABS: ANION GAP 14 (5-15); CALCIUM 8.6 mg/dL (8.4-11.0); CHLORIDE 106 mmol/L (98-107); CREATININE 1.31 mg/dL (0.55-1.30); GLUCOSE 147 mg/dL (70-99); UREA NITROGEN, BLOOD 25 mg/dL (8-21)
[2022-02-27] MEDS: LevALBUTEROL HCL 1.25 MG/0.5 ML *CONC.* VIAL.NEB (XOPENEX CONC.) INH SCH ×3 (07:41→22:20)
[2022-02-27 08:00] VITALS: BP_SYST 151
[2022-02-27] MEDS: ATORVASTATIN 20 MG TABLET PO SCH (09:00)
[2022-02-27] MEDS: CARBIDOPA/LEVODOPA 25/100 MG TABLET PO SCH ×2 (09:00→22:00)
[2022-02-27] MEDS ORDERED: POTASSIUM CHLORIDE 40 MEQ, LIDOCAINE JECT 2% PF 100 MG 50 MG in NS 250 ML IV ONE (09:45)
[2022-02-27] MEDS: HEPARIN SODIUM,PORCINE 5,000 UNITS/ML VIAL SUBCUT SCH ×2 (11:11→23:56)
--- NOTE | 2022-02-27 11:45 | NUR ---
Swallow/Oral Eval Called: Left message with speech therapist @
[2022-02-27 12:00] VITALS: BP_SYST 139
[2022-02-27] MEDS ORDERED: METOPROLOL SUCCINATE 25 MG TAB.SR.24H (TOPROL XL) PO ONE (13:00)
[2022-02-27] MEDS: FLUCONAZOLE 100 mg/ NS 50 ML IV SCH (13:17)
--- NOTE | 2022-02-27 14:00 | NUR ---
Ordering physician made aware of NPO status related to PO metoprolol. He states to leave order in place until ST makes a determination
[2022-02-27 16:00] VITALS: BP_SYST 139
--- NOTE | 2022-02-27 17:20 | NUR ---
ST EVALUATION COMPLETED. ST TX NOT INDICATED AT THIS TIME. PT HAS INCONSISTENT SWALLOW FUNCTION AND SAFETY. RECOMMEND NPO WITH ALTERNATIVE MEANS OF NUTRITION DUE TO INCREASED RISK OF ASPIRATION. PT SHOWS UNDERSTANDING. FAMILY AT BEDSIDE AND INDICATED UNDERSTANDING.
--- NOTE | 2022-02-27 18:30 | NUR ---
Mr King has been assessed as indicated. He denies pain. He has an order to be NPO. Family has continued to provide small amounts of water as well as small amounts of protein shakes. Mr King has a rattling MPC and will be evaluated by ST. step son and daughter are at the bedside. They are very involved in the patients care. They have been pleasant with staff. Mr King's daughter is completing a medical directive this evening. Potassium has been replaced. ST states that Mr King should remain NPO. His family has been made aware and express that they understand this The family has expressed that they would like to speak to Dr Sandy at the bedside or over the phone related to Mr. King's lung condition and prognosis. The family also expresses that the would like to transfer mr. King to [facility] because that is where he usually goes. A message was left with . Dr. Moe states that he has discussed this with the family and made them aware that a transfer would only happen if it was medically necessary and this is not the case at this time. Mr King has worked with PT this shift. He was not able to stand or walk independently. Clarissa is resting quietly at this time with family at the bedside
--- NOTE | 2022-02-27 19:15 | NUR ---
Handoff has been given to Yaakov
[2022-02-27 20:00] VITALS: BP_SYST 127
--- NOTE | 2022-02-27 20:00 | NUR ---
INITIAL NOTES: PT IS AWAKE ,LETHARGIC , NOT IN ANY ACUTE DISTRESS ; VITALS ARE STABLE ; ON ROOM AIR , FAMILY AT BEDSIDE ; ASSESSMENT COMPLETED ; NOTICED DRESSING TO THE SACRUM AND RIGHT HEEL , WILL CHANGE DRESSING LATER , PT TURNED AND REPOSITIONED ; BED IN LOW AND LOCK POSITION , WILL CONTINUE TO MONITOR PT . PT IS STILL NPO .
--- NOTE | 2022-02-27 22:10 | NUR ---
MEDICATION; SINEMET IS NOT GIVEN , PT IS NPO , ALL OTHER MEDICATION GIVEN PER ORDER . NOTICED THAT MEDICATIONS WERE SCANNED AND GIVEN BUT IT WAS NOT SAVED AT THIS TIME , HAD TO REENTER AROUND MN .ACTUAL TIME OF GIVING IS THIS TIME
[2022-02-27] MEDS: D5NS 1,000 ML IV SCH (23:54)
--- NOTE | 2022-02-28 00:05 | NUR ---
NEW IV: PT IS COMFORTABLE , NOTICED IV ON THE R AC ,PT IS KEEPING HIS ARM FLEXED AND ITS CONTINUOUSLY BEEPING , DCD IV CATH ,TIP IS INTACT , DRESSING APPLIED , NEW IV STARTED TO THE LEFT FA 22G, X1 ATTEMPT , GOOD BLOOD RETURN NOTICED , IV FLUID RECONNECTED TO IT .VITALS ARE STABLE . WILL CONTINUE TO MONITOR PT . AT BEDSIDE .
[2022-02-28 00:10] VITALS: BP_SYST 102
--- NOTE | 2022-02-28 03:44 | NUR ---
RN NOTES: PT IS SLEEPING , NOT IN ANY ACUTE DISTRESS; IV FLUID IS INFUSING WELL;
[2022-02-28] MEDS: PIPERACILLIN/TAZO 3.375/DEX-IS 50 ML IV SCH ×3 (06:26→18:40)
[2022-02-28 06:29] VITALS: BP_SYST 117
[2022-02-28] MEDS: INSULIN LISPRO SLIDING SCALE 100 UNITS/ML, 3 ML VIAL (humaLOG) SUBCUT PRN ×2 (06:29→22:12)
--- NOTE | 2022-02-28 07:20 | NUR ---
CLOSING NOTES: REPORT GIVEN TO RN , PT IS SLEEPING ,NOT IN ANY ACUTE DISTRESS; ALL NEEDS ATTENDED .SON AT BEDSIDE TALKED WITH DR LY AND DECIDED TO LEAVE AMA . SON STATED HE WILL CALL THE [facility] AND WILL REQUEST FOR AMBULANCE AND THEN SIGN THE PAPER . RN MADE AWARE ABOUT THE NEW DECISION .
[2022-02-28] MEDS: LevALBUTEROL HCL 1.25 MG/0.5 ML *CONC.* VIAL.NEB (XOPENEX CONC.) INH SCH ×3 (07:33→23:44)
--- NOTE | 2022-02-28 08:00 | NUR ---
SUMMARY OF CARE 0800 FAMILY AT BEDSIDE, THINKING OF LEAVING AMA, EXPLAINED THE RISK OF LEAVING AMA. FAMILY DECIDED TO STAY, PATIENT NPO DUE TO SWALLOW EVAL FAILED. KEPT ON HIGH BACK REST, CRACKLES LUNG SOUND, O2 SAT 94 % ROOM AIR, TURNED AND REPOSITIONED 1000 TURNED AND REPOSITIONED [address] LOPEZ, TO PUT O2 AT 1-2L.NC FOR COMFORT, TURNED AND REPOSITIONED, SPOKE TO DR LY THAT PT WILL STAY, FOR GI CONSULT RE PEG PLACEMENT. 1500 WOUND CARE NURSE CAME TO SEE PATIENT, WOUND CARE TREATMENT DONE, PHOTO TAKEN, DR VELAZQUEZ CALLED AND SPOKE TO LOUIE RE GTUBE PLACEMENT. 1900 AT BEDSIDE , NO SOB
[2022-02-28 08:20] VITALS: BP_SYST 140
[2022-02-28 08:52] LABS: BASOPHILS # (AUTO) 0.1 K/uL (0.0-0.2); BASOPHILS % (AUTO) 0.4 % (0.0-2.0); HEMATOCRIT 26.6 % (36-54); HEMOGLOBIN 8.5 g/dL (14.0-18.0); LYMPHOCYTES # (AUTO) 1.1 K/uL (1.0-5.5); LYMPHOCYTES % (AUTO) 7.8 % (20.5-51.5); MEAN CORPUSCULAR HEMOGLOBIN 28 pg (27-31); MEAN CORPUSCULAR HGB CONC 32 % (32-36); MEAN CORPUSCULAR VOLUME 89 fL (79.0-98.0); MONOCYTES # (AUTO) 0.6 K/uL (0.0-1.0); MONOCYTES % (AUTO) 4.1 % (1.7-9.3); NEUTROPHILS # (AUTO) 12.4 K/uL (1.8-7.7); NEUTROPHILS % (AUTO) 87.7 % (40.0-70.0); PLATELET COUNT (AUTO) 457 K/uL (130-430); RED BLOOD CELL COUNT(AUTO) 2.99 MIL/uL (4.2-6.2); RED CELL DISTRIBUTION WIDTH 18.5 % (9.0-15.0); WHITE BLOOD COUNT (AUTO) 14.1 K/uL (4.8-10.8)
[2022-02-28] MEDS: ATORVASTATIN 20 MG TABLET PO SCH (09:00)
[2022-02-28] MEDS: CARBIDOPA/LEVODOPA 25/100 MG TABLET PO SCH ×2 (09:00→21:00)
[2022-02-28] MEDS: METOPROLOL SUCCINATE 25 MG TAB.SR.24H (TOPROL XL) PO SCH (09:00)
[2022-02-28 11:00] VITALS: BP_SYST 137
[2022-02-28] MEDS: HEPARIN SODIUM,PORCINE 5,000 UNITS/ML VIAL SUBCUT SCH ×2 (11:04→21:00)
[2022-02-28] MEDS: FLUCONAZOLE 100 mg/ NS 50 ML IV SCH ×2 (11:17→11:22)
[2022-02-28 12:29] LABS: ANION GAP 10 (5-15); CALCIUM 8.4 mg/dL (8.4-11.0); CHLORIDE 110 mmol/L (98-107); CREATININE 1.65 mg/dL (0.55-1.30); GLUCOSE 175 mg/dL (70-99); UREA NITROGEN, BLOOD 34 mg/dL (8-21)
[2022-02-28 12:36] LABS: ALANINE AMINOTRANSFERASE 36 U/L (12-78); ALBUMIN 2.5 g/dL (3.4-4.8); ASPARTATE AMINOTRANSFERASE 46 U/L (10-37); TOTAL BILIRUBIN 0.7 mg/dL (0.0-1.0)
[2022-02-28] MEDS: D5NS 1,000 ML IV SCH (12:40)
--- NOTE | 2022-02-28 14:36 | NUR ---
CONSULT GI PEG PLACEMENT DR FREDERICK,[facility] [phone] S/[facility] OFFICE
[2022-02-28 15:10] VITALS: BP_SYST 127; BP_SYST 137
--- NOTE | 2022-02-28 15:30 | NUR ---
WOUND EVALUATION: Wound Consult received from Dr. Moe. Thank you, Dr. Moe, for the consult. Patient received in a [place] Bed with an Isoflex ROYA mattress, awake, alert, and oriented x 3. Patient is unable to turn in bed independently. Ren Score is a 13. Past Medical History: Diabetes Mellitus Type II, history of MT, CHF, 26-vlak-zclz tobacco use disorder (stopped smoking about 8 years ago). Recent Labs: WBC 14.1, RBC 2.99, hemoglobin 8.5, hematocrit 26.6, platelets 457, chloride 110, BUN 34, creatinine 1.65, glucose 175, POC glucose 173, magnesium 2.4, AST 46, albumin 2.5. Troponin I: 245, 228, 101, 96. Microbiology: Blood culture results x2 negative. Urine culture results positive for Aerococcus urinae. New set of blood culture results x2 in progress. Intrinsic factors that delay wound healing: Diabetes Mellitus Type II, CHF, history of smoking, Anemia of Chronic Illness, Acute Respiratory Failure, Acute over Chronic Systolic over Diastolic Heart Failure, moderate Malnutrition, Aspiration Pneumonia, Hyperglycemia, Hypoalbuminemia. Extrinsic factors that delay wound healing: Decreased mobility, wheelchair-bound. Per assessment by Dr. Moe: Septic shock, Anemia of Chronic Illness, Acute Respiratory Failure, Vasomotor Nephropathy, Acute over Chronic Systolic over Diastolic Heart Failure, moderate Malnutrition, Aspiration Pneumonia, complicated Urinary Tract Infection, Hypertension. Wound Assessment: 1. Sacral area: Stage IV pressure ulcer, present on admission. Wound bed has 30% dark color tissue, 30% yellow tissue, 60% pink tissue. No odor, no drainage. Periwound has dark discolored skin on surrounding tissue with white and pink scar tissue on surrounding tissue at 6 o'clock, and also has undermining from 4-7 o'clock (2.1 cm at 4 o'clock, 2.5 cm 6 o'clock, at 1.1 cm at 7 o'clock). Sinus tract at inferior aspect of wound near 6 o'clock measuring 0.4 cm. Wound measures 8.0 cm x 6.0 cm x 2.2 cm. Recommend: Cleanse wound with normal saline. Apply moisture barrier cream to oleksandr-wound. Apply Venelex ointment to wound bed. Cover wound with Thera-honey dressing. Apply Venelex on top of Thera honey dressing. Apply saline soaked gauze as packing over Venelex ointment and Thera-honey dressing. Cover with Sacral foam dressing. Perform wound care daily, and as needed for dressing soiling or dislodgement. 2. Right Lateral Hip, Posterior to Greater Trochanter: Blanchable redness. Recommend: Apply moisture barrier cream to site. Cover site with foam dressing. Perform site care daily, and as needed for dressing soiling or dislodgment. 3. Right posterior heel: Blanchable redness. Recommend: Cover site with foam dressing. Perform site care daily, and as needed for dressing soiling or dislodgment. Elevate, offload and float bilateral heels with 1 pillow lengthwise under each extremity at all times. Do not allow heels to touch bed or other surfaces at any time. Also recommend: Reposition patient side to side only every 2 hours with 1 pillow underneath each side of pelvis (facilitate turning by using a third pillow underneath pelvis/pillow, rotating underneath left pelvis/pillow and right pelvis/pillow every 2 hours). Off-load pressure areas with pillows for pressure re-distribution. Offload, elevate and float bilateral heels with 1 pillow lengthwise each extremity at all times. Perform skin care and monitor skin integrity Q shift. Use moisture barrier cream on buttocks and other moisture susceptible areas QID and as needed for soiling. Place patient on a P500 low air-loss mattress.
[2022-02-28] MEDS: ALBUMIN HUMAN 25% 100 ML IV SCH ×2 (16:37→21:50)
[2022-02-28] MEDS ORDERED: HONEY WOUND DRESSING 1 EACH TP PRN (17:00)
--- NOTE | 2022-02-28 20:00 | NUR ---
OPENING Received report from day shift nurse. Patient resting in bed, 98% on 2L NC. NPO pending PEG placement tomorrow. Family at bedside. Safety and aspiration precautions in place.
[2022-02-28 20:10] VITALS: BP_SYST 118
[2022-03-01] MEDS: PIPERACILLIN/TAZO 3.375/DEX-IS 50 ML IV SCH ×4 (00:08→18:09)
[2022-03-01 00:41] VITALS: BP_SYST 114
[2022-03-01] MEDS: LevALBUTEROL HCL 1.25 MG/0.5 ML *CONC.* VIAL.NEB (XOPENEX CONC.) INH PRN ×2 (03:43→11:57)
[2022-03-01] MEDS: ALBUMIN HUMAN 25% 100 ML IV SCH (03:45)
--- NOTE | 2022-03-01 04:45 | NUR ---
Patient tachypneic with increased work of breathing and worsened crackles from earlier in night. HR in 120s. 99% on room air. Oral suctioning provided, patient able to follow directions to cough. RT provided breathing treatment and deeper suctioning. HOB elevated. Addendum: 03/01/22 at 0857 by Orly Licona RN AMENDMENT: Patient on 2L NC.
[2022-03-01] MEDS ORDERED: FUROSEMIDE 100 MG in D5W 90 ML IV SCH ×2 (05:30→06:15)
--- NOTE | 2022-03-01 05:30 | NUR ---
DR. Galdino HICKS Informed Dr. Galdino Hicks that patient's work of breathing is increased and lung sounds are worsened from earlier in the night. Patient's breathing is audibly wet/gurgly. Also informed Dr. Hicks that patient is NPO after a failed swallow eval with PEG placement scheduled. BP 145/73, O2 99%, HR 110s-120s. Received order to stop IV fluids and for Lasix drip at 10 mg/hr.
--- NOTE | 2022-03-01 06:10 | NUR ---
Pharmacy Spoke with pharmacist who stated they will deliver Lasix. IV fluids have been stopped. HOB elevated. Patient's work of breathing has decreased. Lung sounds also improved from earlier.
[2022-03-01] MEDS: INSULIN LISPRO SLIDING SCALE 100 UNITS/ML, 3 ML VIAL (humaLOG) SUBCUT PRN (06:46)
[2022-03-01 06:52] LABS: CALCIUM 8.3 mg/dL (8.4-11.0); CHLORIDE 109 mmol/L (98-107); CREATININE 1.64 mg/dL (0.55-1.30); GLUCOSE 198 mg/dL (70-99); UREA NITROGEN, BLOOD 38 mg/dL (8-21)
[2022-03-01] MEDS ORDERED: MIDAZOLAM HCL 5 MG/5 ML VIAL ONE (07:36)
[2022-03-01] MEDS ORDERED: MEPERIDINE HCL/PF 25 MG/ML DISP.SYRIN ONE (07:36)
[2022-03-01] MEDS: LevALBUTEROL HCL 1.25 MG/0.5 ML *CONC.* VIAL.NEB (XOPENEX CONC.) INH SCH ×2 (07:38→23:22)
--- NOTE | 2022-03-01 08:00 | NUR ---
SUMMARY OF CARE 0800- PATIENT WITH SHORTNESS OF BREATH, SOUNDS CONGESTED, ON HIGH BACK REST, SUCTIONED SECRETIONS NEEDED, FAMILY AT BEDSIDE AND DECLINED THE PEG TUBE AT THIS TIME DUE TO PATIENT HAS SOB. DR LY AND DR CARRERA SAW PATIENT. WITH LOW K- LEVEL TO START K RIDER ONCE AVAILABLE. PATIENT IS DNR PER FAMILY'S REQUEST. 1100- DR GARRISON SPOKE TO FAMILY, ORDERED TO DC LASIX DRIP AND TO START ON MORPHINE DRIP, DOWNS CATHETER INSERTED TO PATIENT. URINALYSIS COLLECTED AND SENT TO LAB. COMFORT MEASURES PROVIDED TO PATIENT, NEW DRESSING ON WOUND BUTTOCKS AREA APPLIED, CONTINUE TO TURNED AND REPOSITIONED. 1300- DUE MEDS GIVEN, SUCTIONED NEEDED. STILL WITH SOB, O2 SAT 97% ON 3L/NC., STILL FAMILY AT BEDSIDE 1500- MORPHINE DRIP STARTED AT 2MG/HR, TO TITRATE NEEDED. 1800- DAUGHTER WANTS THE MORPHINE DRIP TO STAY AT 2MG/HR, PATIENT IS COMFORTABLE AND THEY ARE WAITING FOR HIS OTHER SON TO COME TOMORROW. PATIENT STILL WITH STABLE VITALS SIGN.
[2022-03-01 08:28] LABS: ANION GAP 15 (5-15)
[2022-03-01 08:39] VITALS: BP_SYST 136
[2022-03-01] MEDS ORDERED: POTASSIUM CHLORIDE 40 MEQ, LIDOCAINE JECT 2% PF 100 MG 50 MG in NS 250 ML IV ONE (08:45)
--- NOTE | 2022-03-01 08:45 | NUR ---
HIGH ALERT NOTES DR CARRERA WAS HERE IN THE HOSPITAL AND GAVE TELEPHONE ORDER FOR K -KALPANA.
[2022-03-01] MEDS: METOPROLOL SUCCINATE 25 MG TAB.SR.24H (TOPROL XL) PO SCH (09:00)
[2022-03-01] MEDS: ATORVASTATIN 20 MG TABLET PO SCH (09:00)
[2022-03-01] MEDS: CARBIDOPA/LEVODOPA 25/100 MG TABLET PO SCH ×2 (09:00→21:00)
[2022-03-01] MEDS ORDERED: fentaNYL CITRATE/PF 100 MCG/2 ML AMP ONE (09:18)
[2022-03-01] MEDS: HEPARIN SODIUM,PORCINE 5,000 UNITS/ML VIAL SUBCUT SCH ×2 (11:11→21:00)
[2022-03-01] MEDS: FLUCONAZOLE 100 mg/ NS 50 ML IV SCH (11:22)
[2022-03-01] MEDS: BALSAM PERU/CASTOR OIL 56.7 GM OINT...G. TP SCH (11:23)
[2022-03-01 11:27] LABS: BILIRUBIN,URINE NEGATIVE (NEGATIVE); BLOOD, URINE 1+ (NEGATIVE); CLARITY/URINE SL CLOUDY (CLEAR); COLOR,URINE YELLOW (YELLOW); GLUCOSE,URINE NEGATIVE (NEGATIVE); KETONES,URINE TRACE (NEGATIVE); LEUKOCYTE ESTERASE ,URINE NEGATIVE (NEGATIVE); NITRITE, URINE NEGATIVE (NEGATIVE); PH,URINE 5.5 (5.0-8.0); PROTEIN URINE 2+ (NEGATIVE); UROBILINOGEN,URINE 0.2 (0.2-1.0)
[2022-03-01 11:46] LABS: BACTERIA,URINE FEW /HPF (None Seen)
[2022-03-01 11:47] LABS: COARSE GRANULAR CASTS,URINE 0-10 /LPF (None Seen); MUCUS,URINE None Seen /LPF (None Seen)
--- NOTE | 2022-03-01 11:52 | NUR ---
HOLD TREATMENT TODAY DUE TO THE PATIENT'S MEDICAL STATUS.
[2022-03-01 12:00] VITALS: BP_SYST 124
[2022-03-01] MEDS: MORPHINE SULFATE IN 0.9 % NACL 100 ML IV PRN (13:08)
[2022-03-01] MEDS ORDERED: BUMEX 1 MG/4 ML VIAL IVP ONE (13:30)
[2022-03-01 15:45] VITALS: BP_SYST 150
[2022-03-01 20:00] VITALS: BP_SYST 130
--- NOTE | 2022-03-01 20:00 | NUR ---
OPENING Received report from day shift nurse. Patient resting in bed, vitals stable on 4L NC, no sign of distress. IV fluids and morphine drip infusing per order. Family at bedside. Safety precautions in place.
--- NOTE | 2022-03-01 22:00 | NUR ---
Patient's family stated they don't want him to receive heparin shot or have his blood sugar checked to minimize pain/discomfort for him. Patient is resting in bed and appears comfortable. Safety and aspiration precautions maintained.
[2022-03-02] MEDS: PIPERACILLIN/TAZO 3.375/DEX-IS 50 ML IV SCH ×2 (01:03→06:56)
[2022-03-02 01:29] VITALS: BP_SYST 124
--- NOTE | 2022-03-02 04:00 | NUR ---
ROUNDS Patient resting in bed, appears comfortable through night. No visible sign of pain. Family at bedside.
[2022-03-02] MEDS ORDERED: PIPERACILLIN/TAZOBACTAM 3.375 GM/VIAL (ZOSYN) IV ONE (05:52)
[2022-03-02] MEDS: LevALBUTEROL HCL 1.25 MG/0.5 ML *CONC.* VIAL.NEB (XOPENEX CONC.) INH SCH ×2 (07:00→15:00)
--- NOTE | 2022-03-02 08:00 | NUR ---
Initial Notes Patient is AOx0. Resting, eyes closed. Comfort measures in place. Patient gasping, on 4 L O2 via NC. Facial grimace noted. Patient is on IVF, ( 22G LFA) IV patent. Patient on morphine drip at 2 mg/ hr, running. ( 22 G r wrist) IV patent. Patient has F/C draining by gravity. Family at bedside. Family requests for Morphine drip rate to increase. Safety precautions in place and call light within reach.
[2022-03-02 08:17] LABS: BASOPHILS % (AUTO) 0.1 % (0.0-2.0); HEMATOCRIT 25.1 % (36-54); HEMOGLOBIN 7.8 g/dL (14.0-18.0); LYMPHOCYTES # (AUTO) 1.1 K/uL (1.0-5.5); LYMPHOCYTES % (AUTO) 5.6 % (20.5-51.5); MEAN CORPUSCULAR HEMOGLOBIN 28 pg (27-31); MEAN CORPUSCULAR HGB CONC 31 % (32-36); MEAN CORPUSCULAR VOLUME 92 fL (79.0-98.0); MONOCYTES # (AUTO) 0.9 K/uL (0.0-1.0); MONOCYTES % (AUTO) 4.8 % (1.7-9.3); NEUTROPHILS # (AUTO) 17.3 K/uL (1.8-7.7); NEUTROPHILS % (AUTO) 89.5 % (40.0-70.0); PLATELET COUNT (AUTO) 303 K/uL (130-430); RED BLOOD CELL COUNT(AUTO) 2.75 MIL/uL (4.2-6.2); RED CELL DISTRIBUTION WIDTH 19.4 % (9.0-15.0); WHITE BLOOD COUNT (AUTO) 19.3 K/uL (4.8-10.8)
[2022-03-02] MEDS: MORPHINE SULFATE IN 0.9 % NACL 100 ML IV PRN ×2 (08:36→22:19)
--- NOTE | 2022-03-02 08:36 | NUR ---
MORPHINE DRIP Signs of discomfort (gasping, facial expression) noted. Family at bedside asked about increasing morphine drip rate. Spoke with Dr. Moe who is in agreement with increasing rate. Rate increased to 2.5mg/hr.
[2022-03-02] MEDS: CARBIDOPA/LEVODOPA 25/100 MG TABLET PO SCH ×2 (08:42→20:40)
[2022-03-02] MEDS: ATORVASTATIN 20 MG TABLET PO SCH (08:42)
[2022-03-02] MEDS: BALSAM PERU/CASTOR OIL 56.7 GM OINT...G. TP SCH (08:43)
[2022-03-02] MEDS: HEPARIN SODIUM,PORCINE 5,000 UNITS/ML VIAL SUBCUT SCH ×2 (08:43→20:46)
[2022-03-02 08:58] LABS: ANION GAP 17 (5-15); CALCIUM 8.8 mg/dL (8.4-11.0); CHLORIDE 115 mmol/L (98-107); CREATININE 2.45 mg/dL (0.55-1.30); GLUCOSE 166 mg/dL (70-99); UREA NITROGEN, BLOOD 64 mg/dL (8-21)
[2022-03-02] MEDS: METOPROLOL SUCCINATE 25 MG TAB.SR.24H (TOPROL XL) PO SCH (09:00)
--- NOTE | 2022-03-02 09:30 | NUR ---
Notes Family request no meds or accu- checks. Just IVF and morphine drip. Patient appears to be sleeping, eyes closed. No gasping noted. No facial grimace noted. Comfort measures in place. Safety precautions in place and call light within reach.
--- NOTE | 2022-03-02 11:48 | NUR ---
FAMILY MEMBERS AT BEDSIDE AND REFUSED PT TREATMENT.
[2022-03-02 12:00] VITALS: BP_SYST 122
--- NOTE | 2022-03-02 12:00 | NUR ---
Notes Patient is resting, eyes closed. No more gasping. Breathing is swallow.No ss of acute distress. No facial grimace noted. Family at bedside. Comfort measures in place. Safety precautions in place and call light within reach.
[2022-03-02] MEDS ORDERED: PIPERACILLIN/TAZO 2.25G/DEX-IS 50 ML IV SCH (13:00)
--- NOTE | 2022-03-02 16:54 | NUR ---
Nutrition F/U Pt was due for Nutrition F/U today, however, RD deferred d/t current plans for comfort measures/DNR/morphine drip.
[2022-03-02 16:58] VITALS: BP_SYST 126
[2022-03-02 20:00] VITALS: BP_SYST 90
--- NOTE | 2022-03-02 20:30 | NUR ---
Closing Notes Patient is resting, eyes closed. No ss of acute distress noted. Breathing is swallow, on 4 L O2 via NC. No facial grimace noted. Morphine drip running at 2.5 mg/hr. IVF running. IVs patent. Patient is in a comfortable position. F/C draining by gravity. family at bedside. Safety precautions in place and call light within reach. Endorsed care to CHELSY Mcleod.
[2022-03-03] MEDS: LevALBUTEROL HCL 1.25 MG/0.5 ML *CONC.* VIAL.NEB (XOPENEX CONC.) INH SCH ×4 (00:05→23:25)
[2022-03-03 00:40] VITALS: BP_SYST 94
[2022-03-03 08:00] VITALS: BP_SYST 112
--- NOTE | 2022-03-03 08:00 | NUR ---
Initial Notes Patient is resting, eyes closed. Aox0. Patient is on Morphine drip rate 2.5 cc/ hr. IV patent. Patient on comfort measures. No ss of distress noted. Breathing is swallow. On 2.5 L O2 via nasal cannula. NPO. No facial grimace noted. F/c draining by gravity. Dr. Rangel and Dr. Padilla talked to family at bedside. Bed locked, alarm on, and tat lowest position. Call light within reach.
[2022-03-03] MEDS: CARBIDOPA/LEVODOPA 25/100 MG TABLET PO SCH ×2 (09:00→21:00)
[2022-03-03] MEDS: METOPROLOL SUCCINATE 25 MG TAB.SR.24H (TOPROL XL) PO SCH (09:00)
[2022-03-03] MEDS: ATORVASTATIN 20 MG TABLET PO SCH (09:00)
[2022-03-03] MEDS: 0.45% NACL 1,000 ML IV SCH ×2 (09:59→17:45)
[2022-03-03] MEDS: HEPARIN SODIUM,PORCINE 5,000 UNITS/ML VIAL SUBCUT SCH ×2 (10:00→21:22)
[2022-03-03] MEDS: BALSAM PERU/CASTOR OIL 56.7 GM OINT...G. TP SCH (10:03)
--- NOTE | 2022-03-03 10:22 | NUR ---
Notes Patient is resting, eyes closed. Patient is comfortable. No ss of distress noted. NO SOB noted. Breaths are swallow. NC on 2.5 L O2. No gasping noted. IV patents, flushed well. IVF running. Family at bedside. Bed locked, alarm on, and at lowest position. call light within reach.
[2022-03-03 11:24] VITALS: BP_SYST 109
--- NOTE | 2022-03-03 12:00 | NUR ---
NOTES PATIENT HAS BEEN REPOSITIONED. NO SS OF DISTRESS NOTED. BREATHING REMAINS SHALLOW. NO FACIAL GRIMACE NOTED. IVF RUNNING. MORPHINE DRIP RUNNING. SAFETY PRECAUTIONS IN PLACE AND CALL LIGHT WITHIN REACH.
--- NOTE | 2022-03-03 15:15 | NUR ---
NOTES PATIENT HAS BEEN CLEANED AND REPOSITIONED. WOUND CARE DONE. PATIENT TOLERATED WELL. BREATHING SHALLOW. NO DISTRESS NOTED. NO FACIAL GRIMACE NOTED. FAMILY AT BEDSIDE. SAFETY PRECAUTIONS IN PLACE AND CALL LIGHT WITHIN REACH.
--- NOTE | 2022-03-03 16:56 | NUR ---
NOTES BLOOD GLUCOSE WAS 172 MG/ DL. NO COVERAGE GIVEN. PATIENT REMAINS NPO. NO SS OF DISTRESS NOTED. BREATHING IS SHALLOW. NO FACIAL GRIMACE. PATIENT IS IN A COMFORTABLE POSITION. SAFETY PRECAUTIONS IN PLACE AND CALL LIGHT WITHIN REACH. FAMILY AT BEDSIDE.
[2022-03-03 17:13] VITALS: BP_SYST 110
[2022-03-03] MEDS: MORPHINE SULFATE IN 0.9 % NACL 100 ML IV PRN (18:31)
--- NOTE | 2022-03-03 18:33 | NUR ---
DYSPNEA NOTED PER MD ORDER INCREASE MORPHINE DRIP FROM 2.5 TO 3.0 ML AND HOUR.
--- NOTE | 2022-03-03 19:38 | NUR ---
CLOSING NOTES PATIENT IS RESTING, EYES CLOSED. PATIENT WAS GASPING EARLIER, RN NOTIFIED. MORPHINE DRIP RATE INCREASED FROM 2.5 MG/HR TO 3 MG/HR BY CHELSY STEPHENS. PATIENT IS NOT LONGER GASPING . NO SS OF DISTRESS NOTED AT THIS TIME. BREATHING REMAINS SHALLOW ON 2.5 L O2 VIA NC. NO FACIAL GRIMACE NOTED. IVF RUNNING. BOTH IVS PATENT. ALL NEEDS MET. PATIENT IS STABLE. BED LOCKED, ALARM ON, AND AT LOWEST POSITION. CALL LIGHT WITHIN REACH. FAMILY AT BEDSIDE. ENDORSED CONTINUE OF CARE TO CHELSY CRISTOBAL.
--- NOTE | 2022-03-03 21:27 | NUR ---
RT NOTES. WAS WALKING PAST PT'S ROOM AND VITAL SIGN MACHINE WAS ALARMING DUE TO DESATURATION. RN TURNED UP FLOW METER TO 6L NASAL CANNULA FROM 3L. PT'S SPO2 83%. PLACED 15L NRB MASK ON PT. PT'S SPO2 98%. WILL LEAVE ON TO LET PT RECOVER. WILL CONTINUE TO MONITOR. NO RESP. DISTRESS NOTED.
--- NOTE | 2022-03-03 23:30 | NUR ---
RT NOTES. AFTER PT'S TX PLACED ON 10L SIMPLE MASK. PT TOLERATED WELL. SPO2 94-95%. NO DISTRESS NOTED WILL CONTINUE TO MONITOR.
--- NOTE | 2022-03-04 01:20 | NUR ---
PRONUNCIATION OF pupils nonreactive, no apical pulse. Confirmed with second RN. Family at bedside.
--- NOTE | 2022-03-04 01:35 | NUR ---
DR BYNUM OUTBOUND SALES REPRESENTATIVE FOR DR LY, NOTIFIED TIME OF
--- NOTE | 2022-03-04 01:49 | NUR ---
LYN[facility] procurement agency Case # [id number]
--- NOTE | 2022-03-04 01:52 | NUR ---
AC/DC REWINDER CALLED NOT A AC/DC REWINDER'S CASE
[2022-03-04 02:05] VITALS: BP_SYST 64
--- NOTE | 2022-03-04 03:30 | NUR ---
MORTUARY HERE TO RN QUALITY BODY
== END 2022-03-04 01:20 | DRG 871 ==
LOC: SED 18:19 → SIC 21:48 → STU 21:50
PROVIDERS: ADMIT General Practice; ATTEND General Practice
DX: A41.9 Sepsis, unspecified organism (principal); I50.43 Acute on chronic combined systolic (congestive) and diastolic (congestive) heart failure; J69.0 Pneumonitis due to inhalation of food and vomit; R65.21 Severe sepsis with septic shock; J96.01 Acute respiratory failure with hypoxia; N17.0 Acute kidney failure with tubular necrosis; E44.0 Moderate protein-calorie malnutrition; N30.00 Acute cystitis without hematuria; I13.0 Hypertensive heart and chronic kidney disease with heart failure and stage 1 through stage 4 chronic kidney disease, or unspecified chronic kidney disease; I46.9 Cardiac arrest, cause unspecified; Z66 Do not resuscitate; E86.0 Dehydration; E87.6 Hypokalemia; N18.30 Chronic kidney disease, stage 3 unspecified; E11.22 Type 2 diabetes mellitus with diabetic chronic kidney disease; Z20.822 Contact with and (suspected) exposure to COVID-19; G20 Parkinson's disease; E78.5 Hyperlipidemia, unspecified; R13.10 Dysphagia, unspecified; D63.8 Anemia in other chronic diseases classified elsewhere; L89.90 Pressure ulcer of unspecified site, unspecified stage; I25.10 Atherosclerotic heart disease of native coronary artery without angina pectoris; Z98.2 Presence of cerebrospinal fluid drainage device; Z95.5 Presence of coronary angioplasty implant and graft; Z72.0 Tobacco use; Z79.82 Long term (current) use of aspirin; Z79.899 Other long term (current) drug therapy; Z68.25 Body mass index [BMI] 25.0-25.9, adult; I25.2 Old myocardial infarction
CPT/HCPCS: 36415; 36600; 71045; 80048; 80053; 81000; 82140; 82803-TC; 82962; 83605; 83735; 83880; 84132; 84484; 85025; 85610-TC; 85730-TC; 86480; 87040; 87086; 92610-GN; 93005; 93306; 94640; 94760; 96365; 96375; 97116-GP; 97163-GP; 97530-GP; 99291; G0378; J1450; J1644; J1940; J2175; J2250; J2270; J2543; J3010; J3370; J3480; J3490; J7030; J7042; J7050; J7060; J7608; J7612; P9046